=== PATIENT | male | born 1980 | race Caucasian/White ===

== ENCOUNTER 2016-11-04 15:02 | Outpatient (CLI) ==
[2013-11-05 20:21] VITALS: BMI 25.7
[2016-11-04] MEDS ORDERED: DECADRON 4 MG/ML SDV IM STA (15:16)
[2016-11-04 15:17] VITALS: BP 138/86; TEMP 97.1
[2016-11-04] MEDS ORDERED: DECADRON 4 MG/ML SDV ONE (15:20)
== END 2016-11-04 15:03 | disposition home or self-care (01) ==
LOC: OUTPT 15:02
PROVIDERS: ATTEND Family Medicine
DX: L23.7 Allergic contact dermatitis due to plants, except food (principal)
CPT/HCPCS: 96372

== ENCOUNTER 2016-12-19 23:13 | Emergency (ER) ==
[2016-12-19 23:21] VITALS: BP 155/92; TEMP 98.5; BMI 27.8
[2016-12-19] MEDS ORDERED: DECADRON 4 MG/ML SDV IM STA (23:33)
[2016-12-19] MEDS ORDERED: CLEOCIN PO STA (23:33)
--- NOTE | 2016-12-19 23:37 | ED.PDOC ---
General ED Provider: Dr. SARAH MIRELES Chief Complaint: Hand Pain/Injury Stated Complaint: was working on parents house, today the rt hand is swollen and it is warm. Time Seen by Physician: 23:34 Mode of Arrival: Walk-In Information Source: Patient Primary Care Provider: KRISSY CHENEY Nursing and Triage Documentation Reviewed and Agree: Yes Skin Complaint Exam - Skin/Soft Tissue Complaint/Exam Symptoms Are: Still present Timing: Constant Initial Severity: Mild Current Severity: Mild Character: Reports: Redness, Swelling, Raised Aggravating: Reports: Touch Alleviating: Reports: None Associated Signs and Symptoms: Reports: Fever, Joint swelling. Denies: Chills, Itching, Drainage, Bruising, Tenderness, Red streaks Related History: Reports: Insect bite/sting Related Surgical History: Reports: None Skin Findings: Present: Erythema. Absent: Fluctuant mass Differential Diagnoses: Cellulitis, Other (insect bite) Review of Systems - Review Of Systems Constitutional: Reports: No symptoms Eyes: Reports: No symptoms Ears, Nose, Mouth, Throat: Reports: No symptoms Respiratory: Reports: No symptoms Cardiac: Reports: No symptoms GI: Reports: No symptoms : Reports: No symptoms Musculoskeletal: Reports: No symptoms Skin: Reports: Rash Neurological: Reports: No symptoms Endocrine: Reports: No symptoms Hematologic/Lymphatic: Reports: No symptoms All Other Systems: Reviewed and Negative Past Medical History - Past Medical History Previously Healthy: Yes Endocrine: Reports: None Cardiovascular: Reports: None Respiratory: Reports: None Hematological: Reports: None Gastrointestinal: Reports: None Genitourinary: Reports: None Neuro/Psych: Reports: None Musculoskeletal: Reports: None Cancer: Reports: None - Surgical History General Surgical History: Reports: None - Family History Family History: Reports: None - Social History Smoking Status: Current every day smoker Smoking Cessation Counseling Time: > 3 min - 10 min Hx Substance Use: No Alcohol Screening: None - Immunizations Tetanus Shot up to Date: No (unsure) Physical Exam - Physical Exam Appearance: Well-appearing, No pain distress, Well-nourished Eyes: AMY, EOMI, Conjunctiva clear ENT: Ears normal, Nose normal, Oropharynx normal Respiratory: Airway patent, Breath sounds clear, Breath sounds equal, Respirations nonlabored Cardiovascular: RRR, Pulses normal, No rub, No murmur GI/: Soft, Nontender, No masses, Bowel sounds normal, No Organomegaly Musculoskeletal: Normal strength, ROM intact, No edema, No calf tenderness Skin: Warm (rt hand dorsum, swollen warm. not tender.), Dry, Normal color Neurological: Sensation intact, Motor intact, Reflexes intact, Cranial nerves intact, Alert, Oriented Psychiatric: Affect appropriate, Mood appropriate Critical Care Note - Critical Care Note Total Time (mins): 0 Course - Course Orders, Labs, Meds: Orders Category Date Time Status Clindamycin HCl [Cleocin] MEDS 12/19/16 23:33 Stat 300 mg PO ONCE STA Dexamethasone 4 mg/ml Inj [Decadron 4 mg/ml Sdv] MEDS 12/19/16 23:33 Stat 4 mg IM ONCE STA Vital Signs: Temp Pulse Resp BP Pulse Ox 12/19/16 23:13 98.5 F 95 H 20 155/92 H 98 Departure - Departure Time of Disposition: 23:37 Disposition: HOME SELF-CARE Discharge Problem: Insect bite Qualifiers: Encounter type: initial encounter Qualifier Code: (W57.XXXA) Bitten or stung by nonvenomous insect and other nonvenomous arthropods, initial encounter Instructions: Insect Bite or Sting (ED) Condition: Stable Pt referred to PMD for follow-up: No Additional Instructions: keep hand elevated tylenol prn Prescriptions: Clindamycin HCl 300 mg PO TID #15 capsule Diphenhydramine HCl [Benadryl] 25 mg PO Q6H #14 capsule Prednisone 10 mg PO BIDWM #14 tablet Allergies/Adverse Reactions: Allergies No Known Allergies Allergy (Verified 12/19/16 23:21) Home Medications: Ambulatory Orders Clindamycin HCl 300 mg PO TID #15 capsule 12/19/16 Diphenhydramine HCl [Benadryl] 25 mg PO Q6H #14 capsule 12/19/16 Prednisone 10 mg PO BIDWM #14 tablet 12/19/16 Disposition Discussed With: Patient
== END 2016-12-20 00:15 | disposition home or self-care (01) ==
LOC: ED 23:13
DX: S60.561A Insect bite (nonvenomous) of right hand, initial encounter (principal); W57.XXXA Bitten or stung by nonvenomous insect and other nonvenomous arthropods, initial encounter; F17.210 Nicotine dependence, cigarettes, uncomplicated
CPT/HCPCS: 96372; 99282

== ENCOUNTER 2017-05-16 05:58 | Emergency (ER) ==
[2017-05-16 06:06] VITALS: BP 143/82; TEMP 96.5; BMI 25.7
[2017-05-16] MEDS ORDERED: ZOFRAN 4 MG/2 ML IVP STA (06:20)
[2017-05-16] MEDS ORDERED: TORADOL IVP STA (06:20)
[2017-05-16] MEDS ORDERED: SODIUM CHLORIDE 1,000 ML IV STA (06:20)
--- NOTE | 2017-05-16 06:24 | ED.PDOC ---
General ED Provider: Dr. GEORGE LOMELI Chief Complaint: Kidney Stone Stated Complaint: Patient is a 36 year old male who has a history of kidney stones comes to the ER with a 6 hours history of pressure and pain to left lower back /flank. States it feel the same. The pain has been severe and has vomited several times. Time Seen by Physician: 06:22 Mode of Arrival: Walk-In Information Source: Patient Exam Limitations: No limitations Primary Care Provider: KRISSY CHENEY Nursing and Triage Documentation Reviewed and Agree: Yes Musculoskeletal Complaint Exam - Back Pain Complaint/Exam Mechanism of Injury: Reports: No known trauma Onset/Duration: 6 hours Symptoms Are: Still present Timing: Constant Episodes Lasting: Hours (6) Initial Severity: Severe Current Severity: Severe Location: Reports: Discrete (Left lower and flank area ) Character: Reports: Sharp, Aching, Throbbing Aggravating: Reports: None Alleviating: Reports: None Associated Signs and Symptoms: Reports: Flank pain TAD Risk Factors: Reports: None AAA Risk Factors: Reports: None Epidural Abcess Risk Factors: Reports: None Related Surgical History: Reports: None Focal Tenderness: No Paraspinal Muscle Tenderness: No Paraspinal Muscle Spasm: No Scoliosis: No Lordosis: No Kyphosis: No SLR Test: Right Negative, Left Negative Hip Motion Testing Pain: Right Negative, Left Negative Focal Weakness: Present: None Focal Sensory Loss: Present: None Gait: Present: Normal Differential Diagnoses: Renal Colic Review of Systems - Review Of Systems Constitutional: Reports: Loss of appetite Eyes: Reports: No symptoms Ears, Nose, Mouth, Throat: Reports: No symptoms Respiratory: Reports: No symptoms Cardiac: Reports: No symptoms GI: Reports: Nausea, Vomiting : Reports: Flank pain, Hematuria Musculoskeletal: Reports: Back pain Skin: Reports: No symptoms Neurological: Reports: Anxiety Endocrine: Reports: No symptoms Hematologic/Lymphatic: Reports: No symptoms All Other Systems: Reviewed and Negative Past Medical History - Past Medical History Previously Healthy: Yes Endocrine: Reports: None Cardiovascular: Reports: None Respiratory: Reports: None Hematological: Reports: None Gastrointestinal: Reports: None Genitourinary: Reports: Kidney stones Neuro/Psych: Reports: None Musculoskeletal: Reports: None Cancer: Reports: None - Surgical History General Surgical History: Reports: None - Family History Family History: Reports: None - Social History Smoking Status: Current every day smoker, Heavy tobacco smoker Hx Substance Use: No Alcohol Screening: None - Immunizations Tetanus Shot up to Date: Yes Physical Exam - Physical Exam Appearance: Ill-appearing Ill-appearing: Moderate Pain Distress: Severe Neck: Supple Respiratory: Airway patent, Breath sounds clear, Breath sounds equal, Respirations nonlabored Cardiovascular: RRR, Pulses normal, No rub, No murmur GI/: Soft, Nontender, No masses, Bowel sounds normal, No Organomegaly Musculoskeletal: Normal strength Skin: Warm, Dry Neurological: Sensation intact, Motor intact, Alert, Oriented Psychiatric: Anxious Interpretation - Radiology Interpretation Radiology Interpretation By: Radiologist Radiology Results: Positive (2 mm stone, with mild hydronephrosis.) Exam Interpreted: CT Scan Critical Care Note - Critical Care Note Total Time (mins): 0 Course - Course Hematology/Chemistry: 05/16/17 06:30 05/16/17 06:30 Orders, Labs, Meds: Lab Review 05/16/17 05/16/17 05/16/17 06:30 06:30 06:30 WBC 14.56 H RBC 5.00 Hgb 15.0 Hct 42.5 MCV 85.0 MCH 30.0 MCHC 35.3 RDW Coeff of [place] 12.3 Plt Count 267 Immature Gran % (Auto) 0.4 Neut % (Auto) 75.2 Lymph % (Auto) 14.7 [place] % (Auto) 8.2 Eos % (Auto) 1.2 Baso % (Auto) 0.3 Immature Gran # (Auto) 0.1 Neut # 11.0 H Lymph # 2.1 [place] # 1.2 Eos # 0.2 Baso # 0.0 Sodium 139 Potassium 3.9 Chloride 106 Carbon Dioxide 24 Anion Gap 12.9 BUN 17 Creatinine 1.36 H Estimated GFR (MDRD) 59.00 BUN/Creatinine Ratio 12.50 Glucose 104 H Calcium 9.0 Total Bilirubin 0.57 AST 17 ALT 12 Alkaline Phosphatase 76 Total Protein 6.7 Albumin 3.6 Globulin 3.1 Albumin/Globulin Ratio 1.16 Amylase 62 Lipase 30 Urine Color Yellow Urine Clarity Clear Urine pH 6.0 Ur Specific [place] >=1.030 Urine Protein Negative Urine Glucose (UA) Negative Urine Ketones Negative Urine Blood 1+ Urine Nitrite Negative Urine Bilirubin Negative Urine Urobilinogen 0.2 Ur Leukocyte Esterase Negative Urine Microscopic RBC 2-5 Ur Squamous Epith Cells Not present Urine Mucus 1+ Orders Category Date Time Status ED IV/MEDIPORT/POWERPORT .ONCE EMERGENCY 05/16/17 06:21 Active AMYLASE Stat LAB 05/16/17 06:30 Completed CBC W/ AUTO DIFF Stat LAB 05/16/17 06:30 Completed COMPREHENSIVE METABOLIC PANEL Stat LAB 05/16/17 06:30 Completed LIPASE Stat LAB 05/16/17 06:30 Completed URINALYSIS C & S IF INDICATED Stat LAB 05/16/17 06:30 Completed 0.9 % Sodium Chloride [Saline Flush] MEDS 05/16/17 06:21 Ordered 1 syr IVF PRN PRN Hydromorphone HCl/Pf [Dilaudid 2 mg/ml Syringe] MEDS 05/16/17 06:47 Discontinued 1 mg IVP ONCE STA Ketorolac Tromethamine [Toradol] MEDS 05/16/17 06:20 Discontinued 30 mg IVP ONCE STA Ondansetron HCl/Pf [Zofran 4 mg/2 ml] MEDS 05/16/17 06:20 Discontinued 4 mg IVP ONCE STA Sodium Chloride 0.9% [Sodium Chloride] 1,000 ml MEDS 05/16/17 06:20 Active IV BOLUS Tamsulosin HCl [Flomax] MEDS 05/16/17 06:38 Discontinued 0.4 mg PO ONCE STA CT ABD/PEL WO RENAL STONE PROT Stat RADS 05/16/17 06:21 Completed Medications Generic Name Dose Route Start Last Admin Trade Name Freq PRN Reason Stop Dose Admin Sodium Chloride 1,000 mls @ 1,000 mls/hr 05/16/17 06:20 05/16/17 06:25 Sodium Chloride IV 05/16/17 07:19 1,000 mls/hr BOLUS STA Administration Sodium Chloride 1 syr 05/16/17 06:21 05/16/17 06:49 Saline Flush IVF 1 syr PRN PRN Administration To flush IV Discontinued Medications Generic Name Dose Route Start Last Admin Trade Name Freq PRN Reason Stop Dose Admin Hydromorphone HCl 1 mg 05/16/17 06:47 05/16/17 06:49 Dilaudid 2 Mg/Ml Syringe IVP 05/16/17 06:48 1 mg ONCE STA Administration Ketorolac Tromethamine 30 mg 05/16/17 06:20 05/16/17 06:28 Toradol IVP 05/16/17 06:21 30 mg ONCE STA Administration Ondansetron HCl 4 mg 05/16/17 06:20 05/16/17 06:27 Zofran 4 Mg/2 Ml IVP 05/16/17 06:21 4 mg ONCE STA Administration Tamsulosin HCl 0.4 mg 05/16/17 06:38 Flomax PO 05/16/17 06:39 ONCE STA Vital Signs: Temp Pulse Resp BP Pulse Ox 05/16/17 05:59 96.5 F L 102 H 20 143/82 H 98 Departure - Departure Time of Disposition: 07:00 Disposition: HOME SELF-CARE Discharge Problem: Kidney stone Instructions: Kidney Stones (ED), How to Strain Your Urine (ED) Condition: Stable Pt referred to PMD for follow-up: Yes Additional Instructions: Take Flomax 0.4 mg po daily x 7 days Take [place] 4 times a day x 7 days Strain your urine STOP drinking Soda may drink Lemonade Prescriptions: Hydrocodone/Acetaminophen [[place] 5-325 Tablet] 1 tab PO Q6HR PRN #20 tablet PRN Reason: PAIN Tamsulosin HCl [Flomax] 0.4 mg PO DAILY #10 cap.er.24h Allergies/Adverse Reactions: Allergies No Known Allergies Allergy (Verified 05/16/17 06:06) Home Medications: Ambulatory Orders Hydrocodone/Acetaminophen [[place] 5-325 Tablet] 1 tab PO Q6HR PRN #20 tablet 01/23 Tamsulosin HCl [Flomax] 0.4 mg PO DAILY #10 cap.er.24h 05/16/17 Disposition Discussed With: Patient
[2017-05-16] MEDS ORDERED: FLOMAX PO STA (06:38)
[2017-05-16 06:40] LABS: BILIRUBIN,URINE Negative (NEGATIVE); KETONES,URINE Negative (NEGATIVE); LEUKOCYTE ESTERASE ,URINE Negative (NEGATIVE); NITRITE,URINE Negative (NEGATIVE); PROTEIN,URINE Negative (NEGATIVE); URINE, BLOOD 1+ (NEGATIVE)
[2017-05-16 06:41] LABS: BASOPHILS % (AUTO) 0.3 % (0.0-3.0); EOSINOPHILS # (AUTO) 0.2 K/ul (0.0-0.7); EOSINOPHILS % (AUTO) 1.2 % (0.0-7.0); HEMATOCRIT 42.5 % (42.0-52.0); IMMATURE GRANULOCYTE % (AUTO) 0.4 % (0.0-5.0); LYMPHOCYTES # (AUTO) 2.1 K/uL (0.60-3.4); LYMPHOCYTES % (AUTO) 14.7 (10.0-50.0); MEAN CORPUSCULAR HGB CONC 35.3 (31.8-35.4); MONOCYTES # (AUTO) 1.2 K/uL (0.4-2.0); MONOCYTES % (AUTO) 8.2 (0-10); NEUTROPHILS % (AUTO) 75.2; PLATELET COUNT 267 10^3/uL (140-440); WHITE BLOOD COUNT 14.56 K/ul (4.2-10.2)
[2017-05-16] MEDS ORDERED: DILAUDID 2 MG/ML SYRINGE IM STA (06:42)
[2017-05-16] MEDS ORDERED: DILAUDID 2 MG/ML SYRINGE IVP STA (06:47)
[2017-05-16 06:51] LABS: ADD URINE MICROSCOPIC YES
--- NOTE | 2017-05-16 06:58 | CT ---
Exam: CT of the abdomen and pelvis without contrast History: Flank pain Technique: [address] of the abdomen and pelvis without intravascular contrast FINDINGS: The lung bases are clear. No significant liver abnormality. The adrenals, pancreas and spl een are unremarkable. The stomach and hiatus are unremarkable.The gallbladder appears normal. Puncta te nonobstructing calculus in the upper right kidney. Mild left hydronephrosis and hydroureter. The re is a 2 mm ureterovesicular junction calculus. There is also a punctate nonobstructing lower pole calculus. Perinephric and periureteral stranding are present. The appendix is normal. Normal calib er bowel loops. Left ureterovesicular junction calculus. Normal pelvic genitourinary structures otherwise. Pelvic obdulio wel loops are unremarkable. No inflammatory change in the pelvic fat. No acute abnormality of the abd ominal or pelvic skeleton. Impression: 1. Mild left hydronephrosis and hydroureter secondary to a 2 mm ureterovesicular junction calculus. 2. Bilateral nonobstructing nephrolithiasis
[2017-05-16 06:59] LABS: ALBUMIN 3.6 g/dL (3.4-5.0); ALBUMIN/GLOBULIN RATIO 1.16; ANION GAP 12.9; BILIRUBIN,TOTAL 0.57 mg/dL (0.00-1.20); BUN/CREATININE RATIO 12.5; CREATININE 1.36 mg/dL (0.60-1.10); POTASSIUM 3.9 mmol/L (3.5-5.1); TOTAL PROTEIN 6.7 g/dL (6.4-8.2)
== END 2017-05-16 08:00 | disposition home or self-care (01) ==
LOC: ED 05:58
DX: N20.0 Calculus of kidney (principal); F17.210 Nicotine dependence, cigarettes, uncomplicated; Z87.442 Personal history of urinary calculi
CPT/HCPCS: 36415; 74176; 80053; 81001; 82150; 83690; 85025; 96361; 96374; 96375; 99283

== ENCOUNTER 2017-09-01 14:53 | Emergency (ER) ==
[2017-09-01 14:54] VITALS: BMI 25.7
[2017-09-01 14:57] VITALS: BP 119/77; TEMP 97.8
--- NOTE | 2017-09-01 15:44 | US ---
EXAM: Right upper quadrant abdominal ultrasound. History: Right upper quadrant abdominal pain. Comparison: CT abdomen pelvis 09/01/2017 Technique: Multiple sonographic images through the abdomen were obtained. Color duplex Doppler was used to interrogate vascular flow. Findings: No focal liver lesions identified sonographically. Visualized pancreas demonstrates no kenn ss abnormality. No abdominal ascites. Limited visualization of the right kidney demonstrates no evid ence for hydronephrosis. There is antegrade flow within the main portal vein. No shadowing gallston es. Gallbladder wall is not thickened. Common bile duct measures 0.4 cm in caliber. There is anteg rade flow within the main portal vein. Impression: Unremarkable exam
--- NOTE | 2017-09-01 15:49 | CT ---
EXAM: CT ABDOMEN AND PELVIS HISTORY: Abdominal pain, right upper quadrant TECHNIQUE: CT abdomen and pelvis without intravenous contrast. Images were reconstructed using 5 mm section thickness. Reformations were prepared. COMPARISON: 11/05/2013 FINDINGS: Liver and spleen are grossly unremarkable within limits of this unenhanced exam. Gallbladder, pancre as and adrenal glands appear normal. Kidneys are normal. No ureteral obstruction. Normal abdominal a tran. No gastric distension. The appendix is elongated and dilated with a diameter of about 8.1 mm. There is mild periappendiceal fat stranding. No free air or abscess is seen. No ascites. Normal bowel g as pattern. Urinary bladder and prostate are normal. Ventral abdominal wall is intact without herniation. Bones appear appropriate for age. Lung bases a re clear. There is no pneumoperitoneum. IMPRESSION: Acute appendicitis without evidence of abscess or free air. Surgical consultation is recommended.
--- NOTE | 2017-09-01 16:06 | ED.PDOC ---
General ED Provider: Dr. MICHELLE ROMAN Chief Complaint: Abdominal Pain Stated Complaint: abdominal pain Time Seen by Physician: 15:00 (1 day ) Mode of Arrival: Walk-In Information Source: Patient Exam Limitations: No limitations Primary Care Provider: KRISSY CHENEY Nursing and Triage Documentation Reviewed and Agree: Yes Reviewed sepsis parameters & appropriate labs ordered?: Yes System Inflammatory Response Syndrome: Not Applicable Sepsis Protocol: For patient's 13 years and over: Temp is 96.8 and below OR 101 and greater Pulse >90 BPM Resp >20/minute Acutely Altered Mental Status Are patient's symptoms suggestive of a new infection, such as: -Pneumonia -Skin, Soft Tissue -Endocarditis -UTI -Bone, Joint Infection -Implantable Device -Acute Abdominal Infection -Wound Infection -Meningitis -Blood Stream Catheter Infection -Unknown System Inflammatory Response Syndrome: Not Applicable GI Complaint Exam - Abdominal Pain Complaint/Exam Onset: Gradual Duration: 1 day Symptoms Are: Still present Timing: Constant Initial Severity: Moderate Current Severity: Mild Location of Pain: RLQ Character: Reports: Aching Aggravating: Reports: None Alleviating: Reports: None Associated Signs and Symptoms: Denies: Diaphoresis, Fever, Cough, Chest pain, Dizziness, Back pain, Constipation, Blood in stool, Dysuria, Urinary frequency, Decreased urine output, Decreased appetite, Discharge, Nausea, Vomiting, Diarrhea, Decreased activity Related History: Reports: Similar episode AAA Risk Factors: Reports: None Cardiac Risk Factors: Reports: None Testicular Torsion Risk Factors: Reports: None Surgical Obstruction Risk Factors: Reports: None Related Surgical History: Reports: None Abdominal Findings: Present: None Differential Diagnoses: Appendicitis, Bowel Obstruction, Constipation, Pancreatitis, GB, UTI Review of Systems - Review Of Systems Constitutional: Reports: No symptoms Eyes: Reports: No symptoms Ears, Nose, Mouth, Throat: Reports: No symptoms Respiratory: Reports: No symptoms Cardiac: Reports: No symptoms GI: Reports: Abdominal pain : Reports: No symptoms Musculoskeletal: Reports: No symptoms Skin: Reports: No symptoms Neurological: Reports: No symptoms Endocrine: Reports: No symptoms Hematologic/Lymphatic: Reports: No symptoms All Other Systems: Reviewed and Negative Past Medical History - Past Medical History Previously Healthy: Yes Endocrine: Reports: None Cardiovascular: Reports: None Respiratory: Reports: None Hematological: Reports: None Gastrointestinal: Reports: None Genitourinary: Reports: Kidney stones Neuro/Psych: Reports: None Musculoskeletal: Reports: None Cancer: Reports: None - Surgical History General Surgical History: Reports: None - Family History Family History: Reports: None - Social History Smoking Status: Current every day smoker, Heavy tobacco smoker Hx Substance Use: No Alcohol Screening: None Physical Exam - Physical Exam Appearance: Well-appearing, No pain distress, Well-nourished Eyes: AMY, EOMI, Conjunctiva clear ENT: Ears normal, Nose normal, Oropharynx normal Respiratory: Airway patent, Breath sounds clear, Breath sounds equal, Respirations nonlabored Cardiovascular: RRR, Pulses normal, No rub, No murmur GI/: Tender (rlq) Musculoskeletal: Normal strength, ROM intact, No edema, No calf tenderness Skin: Warm, Dry, Normal color Neurological: Sensation intact, Motor intact, Reflexes intact, Cranial nerves intact, Alert, Oriented Psychiatric: Affect appropriate, Mood appropriate Interpretation - Radiology Interpretation Radiology Interpretation By: Radiologist Radiology Results: Positive (acute appendictis) Critical Care Note - Critical Care Note Total Time (mins): 0 Course - Course Hematology/Chemistry: 09/01/17 15:16 09/01/17 15:16 Orders, Labs, Meds: Lab Review 09/01/17 09/01/17 15:16 15:16 WBC 15.54 H RBC 5.20 Hgb 15.6 Hct 44.9 MCV 86.3 MCH 30.0 MCHC 34.7 RDW Coeff of [place] 12.5 Plt Count 250 Immature Gran % (Auto) 0.3 Neut % (Auto) 71.9 Lymph % (Auto) 19.0 [place] % (Auto) 6.4 Eos % (Auto) 2.1 Baso % (Auto) 0.3 Immature Gran # (Auto) 0.0 Neut # (Auto) 11.2 H Lymph # (Auto) 3.0 [place] # (Auto) 1.0 Eos # (Auto) 0.3 Baso # (Auto) 0.0 Sodium 141 Potassium 4.0 Chloride 104 Carbon Dioxide 26 Anion Gap 15.0 BUN 15 Creatinine 1.02 Estimated GFR (MDRD) 82.00 BUN/Creatinine Ratio 14.70 Glucose 129 H Calcium 9.2 Total Bilirubin 0.5 AST 16 ALT 19 Alkaline Phosphatase 90 Total Protein 7.3 Albumin 3.8 Globulin 3.5 Albumin/Globulin Ratio 1.09 Amylase 63 Lipase 27 Orders Category Date Time Status NPO REMINDER: IMAGING ONCE CARE 09/01/17 15:06 Completed AMYLASE Stat LAB 09/01/17 15:16 Completed CBC W/ AUTO DIFF Stat LAB 09/01/17 15:16 Completed COMPREHENSIVE METABOLIC PANEL Stat LAB 09/01/17 15:16 Completed LIPASE Stat LAB 09/01/17 15:[address] ABDOMEN/PELVIS WO CONTRAST Stat RADS 09/01/17 15:05 Completed ULTRASOUND ABDOMEN, RT. UPPER QUAD [U/S ABDOMEN, RT. RADS 09/01/17 15:05 Completed UPPER QUAD] Stat Vital Signs: Temp Pulse Resp BP Pulse Ox 09/01/17 14:55 97.8 F 116 H 20 119/77 98 Departure - Departure Time of Disposition: 16:06 Disposition: TSF SHORT-TRM HOSP Discharge Problem: Abdominal pain Appendicitis Qualifiers: Appendicitis type: acute appendicitis Instructions: Acute Abdominal Pain (ED) Condition: Good Pt referred to PMD for follow-up: Yes IPMP verified?: No Allergies/Adverse Reactions: Allergies No Known Allergies Allergy (Verified 09/01/17 14:58) Home Medications: Ambulatory Orders 1 [No Reported Medications] 09/01/17
== END 2017-09-01 16:43 | disposition short-term general hospital (02) ==
LOC: ED 14:53
DX: K35.80 Unspecified acute appendicitis (principal); F17.210 Nicotine dependence, cigarettes, uncomplicated
CPT/HCPCS: 36415; 80053; 82150; 83690; 85025; 99285

== ENCOUNTER 2017-09-01 16:46 | Outpatient (CLI) ==
[2017-09-01 14:54] VITALS: BMI 25.7
== END 2017-09-01 16:47 ==
LOC: AMBL 16:46
PROVIDERS: ATTEND Internal Medicine
DX: K35.80 Unspecified acute appendicitis (principal)